=== PATIENT | male | born 1980 | race Caucasian/White ===

== ENCOUNTER 2021-10-20 06:28 | Day surgery (SDC) | payer OTHER ==
[2021-10-19 12:44] VITALS: BMI 36.2
[2021-10-20] MEDS ORDERED: PROPOFOL 40 ML ONE (07:22)
[2021-10-20] MEDS ORDERED: MIDAZOLAM HCL 2 MG/2 ML SINGLE DOSE VIAL ONE ×2 (07:22)
[2021-10-20] MEDS ORDERED: SUCCINYLCHOLINE CHLORIDE 200 MG/10 ML SYRINGE ONE (07:24)
[2021-10-20] MEDS ORDERED: ACETAMINOPHEN INJECTION 100 ML IVPB ONE (07:39)
[2021-10-20] MEDS ORDERED: ROPIVACAINE HCL/PF 100 MG/20 ML VIAL ONE (07:39)
[2021-10-20] MEDS ORDERED: LIDOCAINE HCL 1%, 10 MG/ML (20ML VIAL) ONE (08:06)
[2021-10-20] MEDS ORDERED: BUPIVACAINE HCL/PF 0.25% (2.5MG/ML) 10 ML VIAL ONE (08:06)
[2021-10-20] MEDS ORDERED: KETAMINE HCL 200 MG/20 ML VIAL ONE (08:08)
[2021-10-20] MEDS ORDERED: GLYCOPYRROLATE 0.2 MG/1 ML VIAL ONE (08:13)
[2021-10-20] MEDS ORDERED: ceFAZolin SODIUM 1 GM VIAL ONE (08:13)
[2021-10-20] MEDS ORDERED: ONDANSETRON 4 MG/2 ML VIAL ONE (08:39)
[2021-10-20] MEDS ORDERED: ONDANSETRON 4 MG/2 ML VIAL IVPUSH PRN ×2 (09:45→19:26)
[2021-10-20] MEDS ORDERED: LACTATED RINGERS SOLUTION 1,000 ML IV SCH ×2 (09:45→19:30)
[2021-10-20] MEDS ORDERED: KETOROLAC TROMETHAMINE 30 MG/1 ML VIAL IVPUSH SCH (10:00)
[2021-10-20 11:41] VITALS: PULSE 93; RESP 20
[2021-10-20 11:59] VITALS: BP 132/82; TEMP 97.8
== END 2021-10-20 11:58 | disposition home or self-care (01) ==
LOC: FASU 06:28
PROVIDERS: ATTEND Orthopaedic Surgery
PROC: 0PSN04Z Reposition Left Carpal with Internal Fixation Device, Open Approach (ICD-10-PCS; principal; 2021-10-20 08:32)
DX: S62.002G Unspecified fracture of navicular [scaphoid] bone of left wrist, subsequent encounter for fracture with delayed healing (principal); X58.XXXD Exposure to other specified factors, subsequent encounter
CPT/HCPCS: 73110-TC-LT-FY; 94760